=== PATIENT | male | born 1965 | race Caucasian/White ===

== ENCOUNTER 2020-03-28 14:14 | Emergency (ER) | payer OTHER ==
[2020-03-28 14:23] VITALS: BP 108/73; PULSE 89; TEMP 98.1; BMI 26.6
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
== END 2020-03-28 15:22 | disposition home or self-care (01) ==
LOC: JERFT 14:14
DX: S93.401A Sprain of unspecified ligament of right ankle, initial encounter (principal); V49.40XA Driver injured in collision with unspecified motor vehicles in traffic accident, initial encounter
CPT/HCPCS: 73610-TC-RT-FY; 73630-TC-RT-FY; 99283-25

== ENCOUNTER 2023-01-05 08:40 | Emergency (ER) | payer OTHER ==
[2023-01-05 08:44] VITALS: BP 128/85; PULSE 72; RESP 20; TEMP 98.7; BMI 27.3
[2023-01-05] MEDS ORDERED: LIDOCAINE 5% TOPICAL PATCH TP ONE (08:54)
[2023-01-05] MEDS ORDERED: IBUPROFEN 400 MG TABLET (FP) PO ONE ×2 (08:54→09:10)
[2023-01-05] MEDS ORDERED: LIDOCAINE 5% TOPICAL PATCH ONE (09:10)
[2023-01-05] MEDS ORDERED: LIDOCAINE PATCH REMOVAL MC SCH (22:00)
== END 2023-01-05 09:29 | disposition home or self-care (01) ==
LOC: FER 08:40
DX: M54.50 Low back pain, unspecified (principal); V79.49XA Driver of bus injured in collision with other motor vehicles in traffic accident, initial encounter; Y93.I9 Activity, other involving external motion
CPT/HCPCS: 99283-25